=== PATIENT | male | born 1965 | race Caucasian/White ===

== ENCOUNTER 2016-06-27 14:52 | Emergency (ER) | payer OTHER ==
[~2016-06-27] VITALS: Ht 182.9 cm; Wt 104.5 kg
[2016-06-27 14:56] VITALS: BP 154/86; PULSE 91; RESP 16; O2SAT 96
--- NOTE | 2016-06-27 16:40 | ED.REPORT ---
HPI-Rash / Abscess Date of Service Jun 27, 2016 ED Provider: Chad Ramirez MD Mr. Hernandez is a 50 y/o man who presents today for a cyst under left arm. He has had it intermittently for years but has noticed it has gotten bigger over the past 2-3 days. It has not been this big before. Had one on chest and one on face that were surgically removed. This time it is the size of a golf ball. It is painful, red, and warm. His is worried that it is MRSA. He had it cultured in the past but is not sure if he had MRSA before or not. Throat was sore on Tuesday but resolved, and trouble swallowing lately. Nursing Notes Stated Complaint: CYST UNDER LEFT ARM Chief Complaint: Skin Rash/Abscess Allergies: Coded Allergies: gabapentin (Verified Allergy, Severe, Anaphylaxis, 06/27/16) morphine (Verified Allergy, Intermediate, 06/27/16) pancreatitis symptoms Uncoded Allergies: METHOCARBAMAL (Adverse Reaction, Intermediate, 06/27/16) Headaches General Time Seen by MD: 16:36 Chief Complaint Abscess Hx Obtained From: Patient Past Medical History Past Medical History chronic back pain [place] in 2012 Denies: Diabetes mellitus, Hypertension Past Surgical History Reports: Cholecystectomy Reports: Back/neck surgery Smoking History Current Every Day Smoker (1/2 ppd) Social History Alcohol Use: Denies alcohol use Drug Use: Denies drug use Review of Systems Constitutional: Denies: Chills, Fever Eyes: Denies: Blurred bilateral Ears / Nose / Throat: Denies: Ear drainage bilateral, Hearing loss bilateral, Sore throat Respiratory: Denies: Shortness of breath Cardiovascular: Denies: Chest pain GI: Reports: Nausea, Denies: Abdominal pain, Constipation, Diarrhea, Vomiting Musculoskeletal: Reports: Back pain, Denies: Extremity pain Skin: Denies Bruising, Denies Rash Allergy / Immune: Denies: Hives Male: Denies Dysuria Hematologic: Reports Adenopathy Physical Exam Initial Vital Signs Vital Signs (First) Date Time Temp Pulse Resp B/P Pulse Ox O2 Delivery O2 Flow Rate FiO2 06/27/16 14:56 36.7 91 16 154/86 96 Room Air Initial VS: Reviewed Head / Eyes: Atraumatic, Normocephalic, PERRL ENT: Mucous membranes moist, Conjunctiva normal, No scleral icterus Neck: Supple, Non-tender, Full range of motion Respiratory: Breath sounds normal, Clear to auscultation, No respiratory distress Cardiovascular: Regular rate & rhythm, Heart sounds normal, Intact distal pulses Abdomen / GI: Soft, Non-tender, No guarding, No rebound, No distention Back: No CVA tenderness Lymphatic: No lymphadenopathy Neurologic: Alert, Oriented, Nonfocal Psychiatric: Mood/affect normal, Behavior normal, Normal thought content Rash / Lesion Location: Positive: Axilla (left) Abscess #1 Location/Condition: Positive: Axilla L... (Indurated, tender, erythema, 7 cm by 3.5 cm, purulent drainage) Re-Eval/Medical Decision Med Decision/Clinical Course 1. skin abscess and cellulitis in left axilla -Abscess draining on exam without incision -Surrounding erythema of skin around abscess Discharge & Departure Shift Change Sign-Out Response to Therapy: Improved Slightly improved after abscess started draining during physical exam Impression: Primary Impression: Abscess Additional Impression: Cellulitis Site of cellulitis: extremity Site of cellulitis of extremity: axilla Laterality: left Qualified Code: L03.112 - Cellulitis of left axilla Disposition: Home Discharge Condition All VS Reviewed: Yes Condition: Stable Patient Instructions: Cellulitis (ED) Additional Instructions: Since the abscess in your left armpit is currently draining in the emergency department, you do not need it to be cut open at this time. Continue to encourage drainage from the abscess with warm compresses and gentle pressure. Start taking Keflex 500 mg 1 tablet by mouth twice per day for 7 days and Bactrim DS 800mg/160 mg 1 tablet by mouth twice per day for 7 days. While taking antibiotics, you may want to eat yogurt or take pro-biotics to prevent diarrhea. You should start to see improvement in 24-48 hours. If you develop fever, chills, or worsening swelling, pain, and/or redness of the area please seek medical attention. You may want to follow up with your primary care provider or with a general surgeon to have it possibly incised. Follow up with your primary care provider if your sore throat returns. Referrals: Theresa Lafleur DO EDSupervising Provider for APC: Chad Ramirez MD Attending Statement Attending attestation: I saw this patient in conjunction with the above named resident. I was present for all rsut portions of the history taking and physical examination. I agree with the workup, evaluation, treatment and disposition. In summary, patient presents with abscess that is actively draining, mild surrounding cellulitis, patient nontoxic in appearance. Pt to apply warm compresses, Bactrim and Keflex prescribed, follow-up and return precautions were reviewed in detail patient was discharged in good condition. Chad Ramirez MD copies to: Theresa Lafleur DO ; [facility] Resident Clinic Fanta Emery DO Jun 27, 2016 16:40 Chad Ramirez MD Jun 27, 2016 23:18
[2016-06-27 17:38] VITALS: BP 127/78; PULSE 90; O2SAT 99
== END 2016-06-27 17:39 | disposition home or self-care (01) ==
LOC: SED 14:52
DX: L02.412 Cutaneous abscess of left axilla (principal); L03.112 Cellulitis of left axilla; I25.2 Old myocardial infarction; F17.200 Nicotine dependence, unspecified, uncomplicated; Z88.5 Allergy status to narcotic agent; Z88.8 Allergy status to other drugs, medicaments and biological substances